=== PATIENT | female | born 1975 | race Caucasian/White ===

== ENCOUNTER 2018-04-09 15:33 | Emergency (ER) | payer OTHER, SELFPAY ==
[2018-04-09 15:33] VITALS: BP 120/71; PULSE 88; RESP 16; TEMP 36.6; O2SAT 98; BMI 23.0
[2018-04-09] MEDS: Tetracaine 0.5% Ophthalmic Bottle 1 DRP RIGHT EYE (16:11)
--- NOTE | 2018-04-09 16:23 | ED.DEP ---
ED Disposition - Plan for ED Patient: Chief Complaint: Eye Problem Instructions: ED Chemical Conjunctivitis Referrals: Sergio Clancy MD [Primary Care Provider] - Ludwin Mora MD [STAFF PHYSICIAN] - 1 Day for another exam
[2018-04-09] MEDS: Gentamicin Sulfate 1 OPTH.BTL 2 DRP RIGHT EYE (16:50)
[2018-04-09 16:54] VITALS: PULSE 86; RESP 16; O2SAT 98
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
== END 2018-04-09 16:55 | disposition home or self-care (01) ==
PROVIDERS: Emergency Provider Emergency Medicine; Family Provider Family Medicine; PCP Family Medicine
DX: H10.211 Acute toxic conjunctivitis, right eye (principal); Z77.098 Contact with and (suspected) exposure to other hazardous, chiefly nonmedicinal, chemicals
CPT/HCPCS: 99284; J7030

== ENCOUNTER 2019-08-28 18:40 | Emergency (ER) | payer OTHER, SELFPAY ==
[2019-08-28] VITALS (7 sets, daily range): BP systolic 93–104; BP diastolic 63–80; PULSE 72–106; RESP 12–75; TEMP 36.6–36.7; O2SAT 99–100; BMI 24.2
--- NOTE | 2019-08-28 18:55 | EKG12_ITS ---
Test Reason : CP Blood Pressure : / mmHG Vent. Rate : 094 BPM Atrial Rate : 094 BPM P-R Int : 154 ms QRS Dur : 076 ms QT Int : 394 ms P-R-T Axes : 080 085 075 degrees QTc Int : 492 ms Normal sinus rhythm Abnormal ECG Confirmed by MARLENA JOSEPH MD ([id number]), rewrite editor SARAI NATHAN ([id number]) on 09/01/2019 9:00:05 AM Referred By: ALPESH Confirmed By:MARLENA JOSEPH MD
[2019-08-28] MEDS: 0.9% Normal Saline 1,000 ML 1000 ML IV (19:03)
[2019-08-28] MEDS: Ondansetron 4 MG/2 ML Vial IV (19:03)
[2019-08-28 19:27] LABS: ALB/GLOB Ratio 1.3 RATIO (0.9-2.4); AST(SGOT) 14 U/L (15-37); Alanine Aminotransfer ALT/SGPT 28 U/L (13-56); Albumin, Serum 3.9 g/dL (3.2-5.0); Alkaline Phosphatase 52 U/L (45-117); Anion Gap 9 (5-15); BUN 12 mg/dL (7-18); BUN/Creat Ratio 13.6 RATIO (10-20); Calcium,Total 8.5 mg/dL (8.5-10.1); Chloride 106 mmol/L (98-107); Creatinine, Serum 0.88 mg/dL (0.55-1.02); EST Glomerular Filtration Rate 74 mL/min (>60); Est Glom Filt Rate - Afr Amer 90 mL/min (>60); Estimated Creatinine Clearance 68.19 ml/min; Glucose 156 mg/dL (74-106); Lipase 89 U/L (73-393); Potassium 3.1 mmol/L (3.5-5.1); Protein, Total 6.9 g/dL (6.4-8.2); Sodium Level 139 mmol/L (136-145)
[2019-08-28 19:34] LABS: Absolute Lymphocyte Count 0.94 X10^3/uL (0.83-4.51); Absolute Neutrophil Count 10.6 X10^3/uL (2.0-7.7); Basophil# 0.02 X10^3/uL; Basophil% 0.2 % (0-1); Eosinophil# 0.01 X10^3/uL; Eosinophils% 0.1 % (0-5); Hematocrit 38.2 % (37-47); Hemoglobin 12.7 g/dL (12.0-15.0); Lymphocyte # 0.94 X10^3/ul (4.0); Lymphocyte % 7.9 % (19-41); Mean Corp Hgb Conc 33.2 g/dL (32-36); Mean Corpuscular Hgb 29.7 pg (27.0-32.0); Mean Corpuscular Volume 89.5 fL (81-99); Mean Platelet Vol. 10.4 fl (6.2-12.0); Monocyte% 1.7 % (0-10); NRBC Flagged by Analyzer 0 % (0-5); Neutrophil % 89.5 % (47-70); Platelet Count 296 K/mm3 (150-450); RBC Distribution Width CV 12.1 % (11.6-14.6); RBC Distribution Width SD 39.5 fl (35.1-43.9); Red Blood Count 4.27 M/mm3 (4.2-5.4); White Blood Count 11.8 K/mm3 (4.4-11.0)
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
--- NOTE | 2019-08-28 20:21 | ED.DEP ---
ED Disposition - Plan for ED Patient: Disposition: Home or Assisted Living Instructions: ED Nausea Vomiting Adult Prescriptions: Ondansetron [Zofran Odt] 4 mg PO Q8H PRN PRN #10 tab PRN Reason: Nausea Prescription Printed Referrals: Yon Méndez MD [Primary Care Provider] - 3-5 Days if not improving Additional Instructions: Plenty of fluids and rest. Increase diet slowly and as tolerated. Zofran as needed for nausea. Follow-up with not improving or return if feeling worse. Your labs, cardiac enzymes and EKG were all normal today. Your potassium is only slightly low at 3.1 that should improve with a regular diet.
[2019-08-28] MEDS: Ondansetron ODT 4 MG Tablet PO ×2 (20:51)
== END 2019-08-28 20:51 | disposition home or self-care (01) ==
PROVIDERS: Emergency Provider Emergency Medicine; PCP Family Medicine
DX: R11.2 Nausea with vomiting, unspecified (principal)
CPT/HCPCS: 80053; 83690; 84484; 85025; 93005; 96361; 96374; 99285; J2405

== ENCOUNTER 2021-01-09 09:05 | Emergency (ER) | payer OTHER, SELFPAY ==
[2021-01-09 09:07] VITALS: BP 131/82; PULSE 90; RESP 17; TEMP 36.8; O2SAT 99; BMI 22.1
--- NOTE | 2021-01-09 09:12 | EKG12_ITS ---
Test Reason : CP Blood Pressure : / mmHG Vent. Rate : 090 BPM Atrial Rate : 090 BPM P-R Int : 142 ms QRS Dur : 080 ms QT Int : 372 ms P-R-T Axes : 075 082 080 degrees QTc Int : 455 ms Normal sinus rhythm Normal ECG Confirmed by DUKE FRAUSTO, MEHRDAD ([id number]), supervising film or videotape editor LORAINE MAURO ([id number]) on 01/11/2021 9:35:21 AM Referred By: CHERRY Confirmed By:MEHRDAD WALL MD
--- NOTE | 2021-01-09 09:14 | EDS_ITS ---
HPI History of Present Illness Chief Complaint: Chest Pain Onset/Context/Timing Onset: Hours Activity at onset: sudden and rest Timing: Continuous Quality: Positive for Sharp and Stabbing Location: Substernal (With radiation through the back.) Current Severity: Severe Maximum Severity: Severe Worsened By: Nothing Relieved By: Nothing Associated Symptoms: Positive for Nausea (Patient responded I am not sure.); Negative for Diaphoresis, Dyspnea, Cough, Fever, Lightheadedness, Acid Reflux and Palpitations Narrative Narrative: Patient is a healthy 45-year-old woman with no significant past medical history and no surgical history who presents with substernal sharp stabbing pain that radiates to the back with no associated symptoms. She denies intolerance to greasy or fried foods. She denies history of VTE. She denies black or maroon-colored stool. She denies upper respiratory symptoms. Pain started at approximately 0800. Patient states she took Prilosec tablet at 0830. Patient was reassessed at 0916. Patient states the pain is subsiding. Prior Similar Symptoms: Yes (Not as severe and attributed to possible reflux) Recent Illness/Hospitalization: No CVD Risk Factors: Negative for Hypertension, Diabetes, Hypercholesterolemia, Family History 1' </=55 and Smoking PE Risk Factors: Negative for Recent Travel/Surgery, Recent Immobilization, Prior DVT or PE and Cancer TAD Risk Factors: Negative for Marfan's Syndrome, Hypertension and Family History PFSH PFSH no medical history Allergy/AdvReac Type Severity Reaction Status Date / Time promethazine [From Phenergan] AdvReac Unknown Verified 01/09/21 09:10 no surgical history Social History (Updated 01/09/21 @ 09:[address] Rod Cat MD) household members: spouse current occupational exposures/hazards: No Smoking Status: Never smoker alcohol intake: never substance use type: does not use ROS ROS ED Constitutional Constitutional ED: Denies chills, fever(s) or sweats Eyes Eyes: Reports none ENT ENT ED: Denies rhinorrhea or sore throat Cardiovascular Cardiovascular: Reports as per HPI and chest pain; Denies orthopnea, palpitations or racing heartbeat Respiratory/Chest Respiratory/Chest: Denies cough, dyspnea, dyspnea on exertion or orthopnea Gastrointestinal Gastrointestinal: Denies abdominal pain, constipation, diarrhea or vomiting Genitourinary Genitourinary ED: Denies dysuria, hematuria or urinary frequency Musculoskeletal Musculoskeletal: Reports back pain; Denies arthralgias, myalgias or neck pain Integumentary Denies rash Neurologic Neurologic: Denies headache(s) or weakness Hematologic/Lymphatic Hematologic/Lymphatic: Denies easy bleeding or easy bruising EXAM Physical Exam Const Vital Signs: 01/09/21 09:07 01/09/21 09:11 01/09/21 10:17 Temperature 98.2 F Temperature Source Temporal Pulse Rate 90 82 Respiratory Rate 17 16 Respiratory Effort Normal Non-Labored Blood Pressure 131/82 H 99/82 H Blood Pressure Mean 98 87 Pulse Ox 99 99 Oxygen Delivery Method Room Air Room Air 01/09/21 11:44 01/09/21 12:15 Temperature Temperature Source Pulse Rate 89 80 Respiratory Rate 20 H 14 Respiratory Effort Blood Pressure 106/76 108/70 Blood Pressure Mean 86 82 Pulse Ox 97 98 Oxygen Delivery Method Positive well nourished and well developed General Appearance ED: well developed and other Patient appears uncomfortable. She is not able to sit still. HEENT Reports moist mucous membranes normocephalic and atraumatic Eyes PERRL and EOMs intact bilaterally General Eye ED: Negative for pale conjunctiva or scleral icterus Neck no lymphadenopathy, supple and no JVD Chest Wall palpation of chest normal Resp normal respiratory effort Effort and Inspection: respiratory distress Cardio regular rate, regular rhythm, S1 normal heart sound, S2 normal heart sound and no murmurs GI normal to inspection, nondistended, normoactive bowel sounds, soft to palpation, non-tender and non-distended; Negative for hepatosplenomegaly GI Narrative: Negative Young sign. Back/Spine no CVA tenderness Extremity normal to inspection General Extremety ED: Negative for edema, pulses abnormal or tenderness General Extremity: Negative for edema or pulses abnormal Neuro oriented x3 and CN's II-XII intact bilaterally Sensorium / Orientation: awake and alert Psych mental status grossly normal Skin no rashes or lesions noted and no wounds Heart Score History: Slightly/Non-Suspicious ECG: Normal Age: </= 45 years Risk Factors: No Risk Factors Score: 0 MDM MDM MDM Narrative Medical decision making narrative: Patient presents with significant atypical chest pain radiating through the back. Differential diagnosis would include cardiac versus noncardiac. Need to evaluate for esophageal spasm, GERD, biliary pain, and doubt aortic dissection. Lab Data Attestation: I reviewed the patient's lab results. Lab results narrative: Blood work is unremarkable. Delta troponin is normal. Suspect patient has esophageal spasm. Labs: Laboratory Results - last 24 hr 01/09/21 01/09/21 01/09/21 09:15 09:15 11:47 WBC 10.0 RBC 4.47 Hgb 13.2 Hct 40.3 MCV 90.2 MCH 29.5 MCHC 32.8 RDW Std Deviation 40.5 RDW Coeff of Hardy 12.2 Plt Count 346 MPV 10.1 Immature Gran % (Auto) 0.900 Neut % (Auto) 49.1 Lymph % (Auto) 40.0 [place] % (Auto) 7.1 Eos % (Auto) 2.1 Baso % (Auto) 0.8 Absolute Neuts (auto) 4.9 Absolute Lymphs (auto) 4.01 Nucleated RBC % 0 Sodium 140 Potassium 3.4 L Chloride 109 H Carbon Dioxide 25.0 Anion Gap 6 BUN 13 Creatinine 0.81 Estim Creat Clear Calc 82.11 Est GFR (MDRD) Af Amer 98 Est GFR (MDRD) Non-Af 81 BUN/Creatinine Ratio 16.0 Glucose 129 H Calcium 9.0 Total Bilirubin 0.30 AST 17 ALT 28 Alkaline Phosphatase 60 Troponin I High Sens 4 4 Total Protein 7.4 Albumin 4.0 Globulin 3.4 Albumin/Globulin Ratio 1.2 Lipase 116 Radiography Chest X-Ray - ED: 1 View, Read by ED Physician, Normal, Heart, Lungs and Mediastinum Diagnostic Testing: Radiology Impression Chest X-Ray 01/09/21 09:54 IMPRESSION: Normal x-ray examination of the chest. Electronically Signed: Armando Henderson MD at 10:11 EDT Tel , Service support , EKG Initial EKG: Attestation: I personally reviewed and interpreted this EKG as follows: Interpretation: Sinus Rhythm (EKG is normal. The ventricular rate is 90. GA interval is 142 ms. QS duration 80 ms. QT duration 372 ms. [place] is normal. This was obtained when patient was having pain.) Prior EKG tracings: available for review Prior: Unchanged (Prior EKG was dated) Discharge Plan Triage Chief Complaint: Chest Pain ED Provider: Cat,Rod Dx/Rx/DC Orders Clinical Impression: Chest pain at rest, Esophageal spasm Instructions: ED Chest Pain, Noncardiac, ED Esophageal Spasm Primary Care Provider: Yon Méndez Referrals: Yon Méndez MD [Primary Care Provider] - As Needed Disposition Disposition: Home, Self Care
[2021-01-09 09:23] LABS: Absolute Lymphocyte Count 4.01 X10^3/uL (0.83-4.51); Absolute Neutrophil Count 4.9 X10^3/uL (2.0-7.7); Basophil# 0.08 X10^3/uL; Basophil% 0.8 % (0-1); Eosinophil# 0.21 X10^3/uL; Eosinophils% 2.1 % (0-5); Hematocrit 40.3 % (37-47); Hemoglobin 13.2 g/dL (12.0-15.0); Lymphocyte # 4.01 X10^3/ul (0.83-4.51); Mean Corp Hgb Conc 32.8 g/dL (32-36); Mean Corpuscular Hgb 29.5 pg (27.0-32.0); Mean Corpuscular Volume 90.2 fL (81-99); Mean Platelet Vol. 10.1 fl (6.2-12.0); Monocyte# 0.71 X10^3/uL; Monocyte% 7.1 % (0-10); NRBC Flagged by Analyzer 0 % (0-5); Neutrophil # 4.92 X10^3/uL (2.7-7.7); Neutrophil % 49.1 % (47-70); Platelet Count 346 K/mm3 (150-450); RBC Distribution Width CV 12.2 % (11.6-14.6); RBC Distribution Width SD 40.5 fl (35.1-43.9); Red Blood Count 4.47 M/mm3 (4.2-5.4)
[2021-01-09 09:42] LABS: ALB/GLOB Ratio 1.2 RATIO (0.9-2.4); AST(SGOT) 17 U/L (15-37); Alanine Aminotransfer ALT/SGPT 28 U/L (13-56); Alkaline Phosphatase 60 U/L (45-117); Anion Gap 6 (5-15); BUN 13 mg/dL (7-18); Chloride 109 mmol/L (98-107); Creatinine, Serum 0.81 mg/dL (0.55-1.02); EST Glomerular Filtration Rate 81 mL/min (>60); Est Glom Filt Rate - Afr Amer 98 mL/min (>60); Estimated Creatinine Clearance 82.11 ml/min; Globulin 3.4 g/dL (2.2-4.2); Glucose 129 mg/dL (74-106); Lipase 116 U/L (73-393); Potassium 3.4 mmol/L (3.5-5.1); Protein, Total 7.4 g/dL (6.4-8.2); Sodium Level 140 mmol/L (136-145); Troponin-I HS 4 pg/mL (3.0-54.0)
--- NOTE | 2021-01-09 09:54 | RAD_ITS ---
STUDY: X-RAY CHEST REASON FOR EXAM: Female, 45 years old. CP TECHNIQUE: Single AP portable view of the chest. COMPARISON: None. FINDINGS: The lungs are clear and expanded. There is no demonstrated pleural abnormality. Normal size heart. Normal mediastinum and chun. Normal visualized pulmonary arteries. Normal visualized aortic arch and descending thoracic aorta. Normal visualized thoracic spine. Normal visualized ribs, clavicles, and shoulders. There is no demonstrated abnormality of the visualized soft tissue structures of the upper abdomen. RAD/Chest 1 View (Portable) IMPRESSION: Normal x-ray examination of the chest. Electronically Signed: Armando Henderson MD at 10:11 EDT Tel , Service support ,
[2021-01-09 10:17] VITALS: BP 99/82; PULSE 82; RESP 16; O2SAT 99
[2021-01-09 11:44] VITALS: BP 106/76; PULSE 89; RESP 20; O2SAT 97
[2021-01-09 12:15] VITALS: BP 108/70; PULSE 80; RESP 14; O2SAT 98
[2021-01-09 12:15] LABS: Troponin-I HS 4 pg/mL (3.0-54.0)
== END 2021-01-09 12:47 | disposition home or self-care (01) ==
PROVIDERS: Emergency Provider Emergency Medicine; PCP Family Medicine
DX: K22.4 Dyskinesia of esophagus (principal); R07.9 Chest pain, unspecified
CPT/HCPCS: 71045; 80053; 83690; 84484; 85025; 93005; 99283; A4216

== ENCOUNTER 2021-02-24 15:07 | Inpatient (IN) | payer OTHER, SELFPAY ==
[2021-02-24 15:09] VITALS: BP 101/81; PULSE 94; RESP 18; TEMP 36.3; O2SAT 96
[2021-02-24 15:12] VITALS: BP 101/81; PULSE 97; RESP 18; TEMP 36.3; O2SAT 96; BMI 22.1
[2021-02-24 15:40] LABS: Absolute Lymphocyte Count 4.42 X10^3/uL (0.83-4.51); Basophil# 0.06 X10^3/uL; Basophil% 0.4 % (0-1); Eosinophil# 0.14 X10^3/uL; Hematocrit 41.3 % (37-47); Hemoglobin 14.1 g/dL (12.0-15.0); Lymphocyte # 4.42 X10^3/ul (0.83-4.51); Lymphocyte % 32.5 % (19-41); Mean Corp Hgb Conc 34.1 g/dL (32-36); Mean Corpuscular Hgb 29.4 pg (27.0-32.0); Mean Corpuscular Volume 86.2 fL (81-99); Mean Platelet Vol. 10.3 fl (6.2-12.0); Monocyte% 6.6 % (0-10); NRBC Flagged by Analyzer 0 % (0-5); Neutrophil # 7.99 X10^3/uL (2.7-7.7); Platelet Count 476 K/mm3 (150-450); RBC Distribution Width SD 38.2 fl (35.1-43.9); Red Blood Count 4.79 M/mm3 (4.2-5.4); White Blood Count 13.6 K/mm3 (4.4-11.0)
[2021-02-24 15:59] LABS: Anion Gap 10 (5-15); BUN 7 mg/dL (7-18); BUN/Creat Ratio 7.1 RATIO (10-20); Calcium,Total 9.6 mg/dL (8.5-10.1); Chloride 104 mmol/L (98-107); Creatinine, Serum 0.99 mg/dL (0.55-1.02); EST Glomerular Filtration Rate 64 mL/min (>60); Est Glom Filt Rate - Afr Amer 78 mL/min (>60); Estimated Creatinine Clearance 59.36 ml/min; Glucose 137 mg/dL (74-106); Potassium 2.8 mmol/L (3.5-5.1); Sodium Level 139 mmol/L (136-145)
--- NOTE | 2021-02-24 16:02 | EKG12_ITS ---
Test Reason : ABDOMINAL PAIN Blood Pressure : / mmHG Vent. Rate : 091 BPM Atrial Rate : 091 BPM P-R Int : 154 ms QRS Dur : 078 ms QT Int : 386 ms P-R-T Axes : 080 079 072 degrees QTc Int : 474 ms Normal sinus rhythm Normal ECG Confirmed by OPAL FRAUSTO, MARLENA ([id number]), editor dictionary LORAINE MAURO ([id number]) on 02/28/2021 8:38:53 AM Referred By: RU Confirmed By:MARLENA JOSEPH MD
--- NOTE | 2021-02-24 16:03 | EX.ED.DYSGE1 ---
HPI History of Present Illness Chief Complaint: Chest Pain Detail of Chief Complaint: Chest/epigastric pain that started this morning around 11:30 AM Informant: patient Narrative Narrative: Patient presents to the emergency department complaint of epigastric pain that started on 11:30 AM. Patient states that it felt like heartburn and she took some Pepto. Pain lasted about 45 minutes and seemed to resolve. About 1:30 PM she started having more discomfort in the epigastric region that radiated through to her back. Patient states that she had numbness and tingling into both hands and her finger started to curl in. Patient states that she had similar episode like this several weeks ago and was seen in the emergency department no etiology was found. Patient states that she had a stomach flu bug with diarrhea about a week ago. She otherwise has no medical history. No family history of heart disease. She denies recent travel or surgery. Currently her pain is mostly resolved but she states that seems to come and go and is sharp and stabbing. Prior similar symptoms: Yes PFSH PFSH Medical History no medical history Home Medications omeprazole 20 mg PO DAILY 02/24/21 [History Last Taken Unknown] Allergy/AdvReac Type Severity Reaction Status Date / Time promethazine [From Phenergan] AdvReac Unknown Verified 01/09/21 09:10 Family History (Updated 02/24/21 @ 16:02 by Sophie Gunn) Father Hypertension Social History (Updated 01/09/21 @ 09:[address] Rod Cat MD) household members: spouse current occupational exposures/hazards: No Smoking Status: Never smoker alcohol intake: never substance use type: does not use ROS ROS ED Constitutional Constitutional ED: Reports systems reviewed and no addt'l complaints, except as documented; Denies body ache(s), change in weight or chills Eyes Eyes: Denies acute decrease in peripheral vision, change in vision, double vision or loss of vision ENT ENT ED: Reports none; Denies ear pain, lip swelling, loss taste/smell, neck pain, otalgia or sore throat Cardiovascular Cardiovascular: Reports none and chest pain; Denies abdominal pain, chest pain with activity, leg edema, lightheadedness, palpitations, rapid heart rate or syncope Respiratory/Chest Respiratory/Chest: Reports none; Denies change in mental status, dry cough, dyspnea, hemoptysis, shortness of breath at rest or shortness of breath with exertion Gastrointestinal Gastrointestinal: Reports none and abdominal pain; Denies change in stool character, diarrhea, hematemesis, hematochezia, melena, rectal bleeding or vomiting Genitourinary Genitourinary ED: Reports none; Denies abdominal discomfort, anuria, dysuria, genital pain or polyuria Musculoskeletal Musculoskeletal: Reports none; Denies arthralgias, back pain, difficulty walking, extremity pain, muscle weakness or myalgias Integumentary Reports none; Denies abscess or rash Neurologic Neurologic: Reports none and paresthesias; Denies abnormal gait, confusion, focal weakness, frequent falls, headache(s), loss of vision, numbness, radicular pain, vertigo or weakness Psychiatric Psychiatric: Reports systems reviewed and no addt'l complaints, except as documented and none; Denies behavioral changes, confusion, difficulty concentrating, hallucinations, suicidal ideation, tactile hallucinations or visual hallucinations Endocrine Endocrinology: Denies none, cold intolerance, excessive sweating, fatigue or heat intolerance Hematologic/Lymphatic Hematologic/Lymphatic: Reports none; Denies anemia, easy bleeding or easy bruising Allergic/Immunologic Allergic/Immunologic ED: Denies as per HPI, none, lip swelling, mouth swelling, throat swelling, tongue swelling or hives EXAM Physical Exam Const Vital Signs: 02/24/21 15:09 02/24/21 15:12 02/24/21 15:55 Temperature 97.3 F L 97.3 F L Temperature Source Temporal Temporal Pulse Rate 94 97 Respiratory Rate 18 18 Respiratory Effort Normal Respiratory Pattern Normal Blood Pressure 101/81 H 101/81 H Blood Pressure Mean 87 87 Pulse Ox 96 96 Oxygen Delivery Method Room Air Room Air 02/24/21 17:39 02/24/21 18:24 Temperature Temperature Source Pulse Rate 94 101 H Respiratory Rate 16 18 Respiratory Effort Respiratory Pattern Blood Pressure 129/75 H 112/75 Blood Pressure Mean 93 87 Pulse Ox 97 97 Oxygen Delivery Method Room Air Positive well nourished and well developed General Appearance ED: well developed and NAD HEENT Reports TM's clear and moist mucous membranes normocephalic and atraumatic; Negative for trauma or tenderness Tympanic Membrane ED: Yes TM's clear Eyes PERRL and EOMs intact bilaterally General Eye ED: Negative for pale conjunctiva or scleral icterus Neck no lymphadenopathy, supple and no JVD General: Negative for tenderness Chest Wall inspection of chest normal and palpation of chest normal Chest: Negative for tenderness Resp normal respiratory effort and clear to auscultation bilaterally Effort and Inspection: Negative for respiratory distress or pain with movement Auscultation: Negative for rhonchi, wheezes or diminished lung sounds Cardio regular rate, regular rhythm, S1 normal heart sound, S2 normal heart sound and no murmurs Peripheral Pulses: pulses 2+ throughout GI normal to inspection, nondistended, normoactive bowel sounds, soft to palpation, non-distended and no masses GI Narrative: Patient has some tenderness palpation over the epigastric region with some mild guarding. There is no rebound, rigidity, or peritoneal signs. Negative Young sign. Palpation: soft Back/Spine no CVA tenderness and no thoracic nor lumbar tenderness Extremity normal to inspection General Extremety ED: Negative for edema General Extremity: Negative for edema Neuro oriented x3, CN's II-XII intact bilaterally, no sensory deficits noted and gait normal Sensorium / Orientation: awake, alert, oriented to person, oriented to place and oriented to time Motor Exam: strength 5/5 throughout and strength abnormal Psych mental status grossly normal Skin no rashes or lesions noted and no wounds MDM MDM MDM Narrative Medical decision making narrative: IV line established on arrival. Patient was given Zofran IV. She did not want anything for pain. Patient received 40 mEq of potassium chloride IV. On CT she is noted to have cholelithiasis as well as cholecystitis and choledocholithiasis. Case discussed with general surgeon on-call who will admit patient. I did start patient on Zosyn 4.5 g IV. Lab Data Attestation: I reviewed the patient's lab results. Labs: Laboratory Results - last 24 hr 02/24/21 02/24/21 02/24/21 14:24 14:24 14:24 WBC 13.6 H RBC 4.79 Hgb 14.1 Hct 41.3 MCV 86.2 MCH 29.4 MCHC 34.1 RDW Std Deviation 38.2 RDW Coeff of [place] 12.0 Plt Count 476 H MPV 10.3 Immature Gran % (Auto) 0.500 Neut % (Auto) 59.0 Lymph % (Auto) 32.5 [place] % (Auto) 6.6 Eos % (Auto) 1.0 Baso % (Auto) 0.4 Absolute Neuts (auto) 8.0 H Absolute Lymphs (auto) 4.42 Nucleated RBC % 0 D-Dimer Quant (PE/DVT) Sodium 139 Potassium 2.8 L Chloride 104 Carbon Dioxide 25.0 Anion Gap 10 BUN 7 Creatinine 0.99 Estim Creat Clear Calc 59.36 Est GFR (MDRD) Af Amer 78 Est GFR (MDRD) Non-Af 64 BUN/Creatinine Ratio 7.1 L Glucose 137 H Calcium 9.6 Total Bilirubin 0.70 Direct Bilirubin 0.19 AST 18 ALT 19 Alkaline Phosphatase 63 Troponin I High Sens 6 Total Protein 8.0 Albumin 4.5 Globulin 3.5 Lipase 90 Urine Color Urine Clarity Urine pH Ur Specific [place] Urine Protein Urine Glucose (UA) Urine Ketones Urine Occult Blood Urine Nitrite Urine Bilirubin Urine Urobilinogen Ur Leukocyte Esterase Urine RBC Urine WBC Ur Squamous Epith Cells Urine Bacteria Urine Mucus 02/24/21 02/24/21 16:22 17:20 WBC RBC Hgb Hct MCV MCH MCHC RDW Std Deviation RDW Coeff of Hardy Plt Count MPV Immature Gran % (Auto) Neut % (Auto) Lymph % (Auto) [place] % (Auto) Eos % (Auto) Baso % (Auto) Absolute Neuts (auto) Absolute Lymphs (auto) Nucleated RBC % D-Dimer Quant (PE/DVT) <= 0.27 Sodium Potassium Chloride Carbon Dioxide Anion Gap BUN Creatinine Estim Creat Clear Calc Est GFR (MDRD) Af Amer Est GFR (MDRD) Non-Af BUN/Creatinine Ratio Glucose Calcium Total Bilirubin Direct Bilirubin AST ALT Alkaline Phosphatase Troponin I High Sens Total Protein Albumin Globulin Lipase Urine Color Yellow Urine Clarity Clear Urine pH 6.5 Ur Specific [place] 1.015 Urine Protein Negative Urine Glucose (UA) Normal Urine Ketones 50 H Urine Occult Blood Negative Urine Nitrite Negative Urine Bilirubin Negative Urine Urobilinogen Normal Ur Leukocyte Esterase Negative Urine RBC 0 SEEN Urine WBC 0 SEEN Ur Squamous Epith Cells 0 SEEN Urine Bacteria 0 SEEN Urine Mucus 0 SEEN Radiography Diagnostic Testing: Clinical Impression(s) from Imaging Studies Abdomen/Pelvis CT 02/24/21 16:59 IMPRESSION: Findings suspicious for acute cholecystitis and choledocholithiasis. Electronically Signed: Roman Umanzor MD at 18:51 EDT Tel , Service support , Discharge Plan Triage Chief Complaint: Chest Pain ED Provider: Awilda Valente Dx/Rx/DC Orders Clinical Impression: Choledocholithiasis, Acute cholecystitis, Abdominal pain, Acute hypokalemia Prescriptions: No Action omeprazole 20 mg Tablet,Delayed Release (Dr/Ec) 20 mg PO DAILY RF: 0 Primary Care Provider: Yon Méndez Referrals: Yon Méndez MD [Primary Care Provider] - Disposition Disposition: Acute Care Hospital [facility]
[2021-02-24] MEDS: 0.9% Normal Saline 1,000 ML 125 ML IV ×2 (16:10→21:19)
[2021-02-24] MEDS: Mag Hydrox/Al Hydrox/Simeth 30 ML UDC PO (16:10)
[2021-02-24 16:29] LABS: AST(SGOT) 18 U/L (15-37); Alanine Aminotransfer ALT/SGPT 19 U/L (13-56); Albumin, Serum 4.5 g/dL (3.2-5.0); Alkaline Phosphatase 63 U/L (45-117); Bilirubin, Direct 0.19 mg/dL (0.00-0.30); Globulin 3.5 g/dL (2.2-4.2); Lipase 90 U/L (73-393); Troponin-I HS 6 pg/mL (3.0-54.0)
[2021-02-24 16:41] LABS: D-Dimer Quantitative (DVT/PE) <= 0.27 FEU/ug/m (0.27-0.49)
--- NOTE | 2021-02-24 16:59 | CT_ITS ---
INDICATION: abdominal pain EXAMINATION: CT Abdomen And Pelvis W/ Contrast Injection TECHNIQUE: Helically acquired images were obtained of the abdomen and pelvis after IV contrast. A radiation dose optimization technique was used for this scan. IV Contrast dosage and agent: IV 100mL [id number]-370 Oral contrast: None. COMPARISON: None. FINDINGS: Visualized lung bases: Unremarkable Liver: Scattered hepatic cysts. Gallbladder: Few intraluminal stones. There is gallbladder wall thickening. There is pericholecystic fat stranding. There is a 5 mm stone in the cystic duct. There is a 4 mm stone in the distal common bile duct with associated dilatation with a diameter of 1 cm. Spleen: Unremarkable Pancreas: Unremarkable Adrenal Glands: Unremarkable Kidneys: Unremarkable Vasculature: Unremarkable GI Tract: Unremarkable Lymphadenopathy: None Peritoneum: No ascites. Bladder: Unremarkable Reproductive organs: Unremarkable Bones/Soft tissues: No suspicious osseous or soft tissue lesions CT/Abdomen/Pelvis W IV Cont ONLY IMPRESSION: Findings suspicious for acute cholecystitis and choledocholithiasis. Electronically Signed: Roman Umanzor MD at 18:51 EDT Tel , Service support ,
[2021-02-24] MEDS: Ondansetron 4 MG/2 ML Vial IV ×2 (17:32→21:34)
[2021-02-24 17:38] LABS: Bacteria 0 SEEN /hpf (None Seen); Mucous, Urine 0 SEEN /hpf (<or=2+); Red Blood Cells-Urine 0 SEEN /hpf (0-5); Squamous Epithelial Cells - UA 0 SEEN /hpf (5-10); White Blood Cells 0 SEEN /hpf (0-5)
[2021-02-24 17:39] VITALS: BP 129/75; PULSE 94; RESP 16; O2SAT 97
[2021-02-24 17:40] LABS: Color, Urine Yellow (Yellow); Glucose, Dipstick Normal (Normal); Ketone-Dipstick 50 mg/dl (Negative); Leukocyte Esterase-Dipstick Negative /ul (Negative); Nitrite-Dipstick Negative (Negative); Occult Blood-Urine Negative /ul (Negative); Protein-Dipstick Negative (Negative); Specific Gravity, Urine 1.015 (1.002-1.030); Urine Bilirubin Dipstick Negative (Negative); Urine Clarity Clear (Clear); Urine Urobilinogen Normal (Normal); Urine pH 6.5 (5.0 - 8.0)
[2021-02-24] MEDS: Potassium Chloride 10mEq/100mL 10 MEQ/100 ML IV.SOLN. 100 MEQ IV BOLUS ×4 (18:20→21:37)
[2021-02-24 18:24] VITALS: BP 112/75; PULSE 101; RESP 18; O2SAT 97
--- NOTE | 2021-02-24 20:05 | HP.PCM.SX_ITS ---
HPI - General General Date of Admission: 02/24/21 HPI Narrative ZACARIAS GONZALEZ, is a 45 F who presents with abdominal pain. Patient reports the pain has been off and on for few weeks. She is in the emergency room about a week ago with the same symptoms. Patient reports this episode of pain started around 11 AM this morning. No nausea or vomiting. Patient reports pain in the right upper quadrant which radiates to the back. PFSH Medical History no medical history Home Medications omeprazole 20 mg PO DAILY 02/24/21 [History Last Taken Unknown] Allergy/AdvReac Type Severity Reaction Status Date / Time promethazine [From Phenergan] AdvReac Unknown Verified 01/09/21 09:10 Family History (Updated 02/24/21 @ 16:02 by Sophie Gunn) Father Hypertension Social History (Updated 01/09/21 @ 09:[address] Rod Cat MD) household members: spouse current occupational exposures/hazards: No Smoking Status: Never smoker alcohol intake: never substance use type: does not use ROS Constitutional Constitutional: Denies anorexia, chills or fatigue ENT HEENT: Denies abnormal hearing Cardiovascular Cardiovascular: Denies chest pain Respiratory/Chest Respiratory/Chest: Denies cough Gastrointestinal Gastrointestinal: Reports abdominal pain and diarrhea; Denies constipation, dysphagia, melena or nausea Vital Signs Vital Signs Vital Signs: 02/24/21 15:09 02/24/21 15:12 02/24/21 15:55 Temperature 97.3 F L 97.3 F L Temperature Source Temporal Temporal Pulse Rate 94 97 Respiratory Rate 18 18 Respiratory Effort Normal Respiratory Pattern Normal Blood Pressure 101/81 H 101/81 H Blood Pressure Mean 87 87 Pulse Ox 96 96 Oxygen Delivery Method Room Air Room Air 02/24/21 17:39 02/24/21 18:24 Temperature Temperature Source Pulse Rate 94 101 H Respiratory Rate 16 18 Respiratory Effort Respiratory Pattern Blood Pressure 129/75 H 112/75 Blood Pressure Mean 93 87 Pulse Ox 97 97 Oxygen Delivery Method Room Air Weight Weight: 125 lb 3.914 oz Body Mass Index (BMI) 22.1 Physical Exam Const oriented x3 and no apparent distress Resp normal respiratory effort Cardio regular rate and regular rhythm GI soft to palpation Palpation: tender RUQ Results Lab / Micro Data Result Diagrams: 02/24/21 14:24 02/24/21 14:24 Labs: Laboratory Results - last 24 hr 02/24/21 14:24: WBC 13.6 H, RBC 4.79, Hgb 14.1, Hct 41.3, MCV 86.2, MCH 29.4, MCHC 34.1, RDW Std Deviation 38.2, RDW Coeff of Hardy 12.0, Plt Count 476 H, MPV 10.3, Immature Gran % (Auto) 0.500, Neut % (Auto) 59.0, Lymph % (Auto) 32.5, [place] % (Auto) 6.6, Eos % (Auto) 1.0, Baso % (Auto) 0.4, Absolute Neuts (auto) 8.0 H, Absolute Lymphs (auto) 4.42, Nucleated RBC % 0 02/24/21 14:24: Sodium 139, Potassium 2.8 L, Chloride 104, Carbon Dioxide 25.0, Anion Gap 10, BUN 7, Creatinine 0.99, Estim Creat Clear Calc 59.36, Est GFR (MDRD) Af Amer 78, Est GFR (MDRD) Non-Af 64, BUN/Creatinine Ratio 7.1 L, Glucose 137 H, Calcium 9.6 02/24/21 14:24: Total Bilirubin 0.70, Direct Bilirubin 0.19, AST 18, ALT 19, Alkaline Phosphatase 63, Troponin I High Sens 6, Total Protein 8.0, Albumin 4.5, Globulin 3.5, Lipase 90 02/24/21 16:22: D-Dimer Quant (PE/DVT) <= 0.27 02/24/21 17:20: Urine Color Yellow, Urine Clarity Clear, Urine pH 6.5, Ur Specific [place] 1.015, Urine Protein Negative, Urine Glucose (UA) Normal, Urine Ketones 50 H, Urine Occult Blood Negative, Urine Nitrite Negative, Urine Bilirubin Negative, Urine Urobilinogen Normal, Ur Leukocyte Esterase Negative, Urine RBC 0 SEEN, Urine WBC 0 SEEN, Ur Squamous Epith Cells 0 SEEN, Urine Anna teria 0 SEEN, Urine Mucus 0 SEEN Radiology Impression Abdomen/Pelvis CT 02/24/21 16:59 IMPRESSION: Findings suspicious for acute cholecystitis and choledocholithiasis. Electronically Signed: Roman Umanzor MD at 18:51 EDT Tel , Service support , Assessment & Plan Assessment/Plan (1) Choledocholithiasis: (2) Acute cholecystitis: PLAN: Patient had a CT scan which shows choledocholithiasis as well as acute cholecystitis and cholelithiasis. Patient does have a white count and acute pain. I will admit the patient and start her on antibiotics and keep her n.p.o. and IV fluids. Patient is hypokalemic and this is being replaced. I recommend ERCP tomorrow for stone removal with subsequent laparoscopic cholecystectomy. I discussed ERCP and detail with the patient. I discussed the risks including but not limited to bleeding, infection, perforation of the bile duct or bowel, pancreatitis. Patient understands the risks and is when to proceed with ERCP tomorrow. I will order Covid test. Ronen Schuler MD Pager: [facility] [address] [place] [address], [address] [place] [address] Office:
[2021-02-24 20:07] VITALS: BP 119/79; PULSE 89; RESP 18; TEMP 36.8; O2SAT 98
[2021-02-24 20:32] VITALS: BMI 23.6
[2021-02-24 20:52] VITALS: BP 109/71; PULSE 82; RESP 18; TEMP 37.1; O2SAT 99
--- NOTE | 2021-02-24 21:24 | PCS.PANDOC ---
PANDEMIC DOCUMENTATION INITIATED: Date: 12/26/2020 Time: 190
[2021-02-24] MEDS: Morphine 2 MG/ML Syringe IV ×2 (21:34→22:24)
--- NOTE | 2021-02-24 22:07 | NURSING ---
At 2149 pt called out & stated her pain was a 10 and that morphine didn't seem to be working. Catalino RN aware. At 2207 pt called out and said that she was ok and that the pain seemed to have subsided for now.
--- NOTE | 2021-02-24 22:31 | NURSING ---
pt called out and stated that my pain is back up to a 10. pt stated that earlier when i gave the first dose of 2mg of morphine, pts pain was an 8, and this RN marked a 6. pt states that she is unsure if she told this RN whether her pain was a 6 or 8, but it hurts worse now and is a 10. additional 2mg of morphine given at this time to supplement dose of 4mg on JUL.
[2021-02-24] MEDS: 0.9% Saline Lock 10 ML Syringe IV (23:00)
[2021-02-24] MEDS: LORazepam 2 MG/ML Syringe 1 MG IV (23:00)
[2021-02-25] VITALS (11 sets, daily range): BP systolic 94–118; BP diastolic 56–80; PULSE 64–88; RESP 12–18; TEMP 36.3–37.1; O2SAT 96–100; BMI 23.6
[2021-02-25] MEDS: 0.9% Normal Saline 1,000 ML 125 ML IV ×3 (03:44→20:51)
[2021-02-25 05:58] LABS: Internal QC Validated? YES +Cl - CLEAR BKGD; Pregnancy, Urine Negative Negative
[2021-02-25 07:51] LABS: Absolute Lymphocyte Count 1.08 X10^3/uL (0.83-4.51); Absolute Neutrophil Count 4.4 X10^3/uL (2.0-7.7); Basophil# 0.04 X10^3/uL; Basophil% 0.7 % (0-1); Eosinophil# 0.09 X10^3/uL; Eosinophils% 1.5 % (0-5); Lymphocyte # 1.08 X10^3/ul (0.83-4.51); Lymphocyte % 17.7 % (19-41); Mean Corp Hgb Conc 33.3 g/dL (32-36); Mean Corpuscular Hgb 30.4 pg (27.0-32.0); Mean Corpuscular Volume 91.2 fL (81-99); Mean Platelet Vol. 10.3 fl (6.2-12.0); Monocyte# 0.47 X10^3/uL; Monocyte% 7.7 % (0-10); NRBC Flagged by Analyzer 0 % (0-5); Neutrophil % 71.9 % (47-70); Platelet Count 276 K/mm3 (150-450); RBC Distribution Width CV 12.4 % (11.6-14.6); Red Blood Count 3.62 M/mm3 (4.2-5.4); White Blood Count 6.1 K/mm3 (4.4-11.0)
--- NOTE | 2021-02-25 08:30 | RAD_ITS ---
HISTORY: Pain EXAMINATION/TECHNIQUE: FL Cholangiogram and/or Pancreatography OR: 6 spot intraoperative films were provided for interpretation. Total Fluoroscopic Time: 3 minutes 48 seconds AND # of Fluoroscopic Images: 6 COMPARISON: February 24, 2021 CT abdomen and pelvis FINDINGS: Sequential images show wire cannulization of the common bile duct. Nonspecific contrast region of the shalini hepatis on the initial image without increase on subsequent images. Small round filling defect on the common duct on image 2 which could represents air or stone, not seen on image 5. No other filling defects are identified in the common bile duct. Mild diffuse intra-and expect biliary dilatation.. Overlying contrast is also seen within bowel. RAD/ERCP Biliary Only IMPRESSION: Fluoroscopic support for ERCP. Mild diffuse intra-and expect biliary dilatation. Nonspecific contrast density projects over the shalini hepatis on initial image. Air or stone filling defect in the distal common bile duct on initial images, not seen on final images. Correlate with ERCP procedure note for real-time findings. at 0124 Reported and signed by: Pito Mark MD Electronically Signed: Pito Mark MD at 1:23 EDT Tel , Service support ,
[2021-02-25 08:38] LABS: ALB/GLOB Ratio 1.1 RATIO (0.9-2.4); AST(SGOT) 87 U/L (15-37); Alanine Aminotransfer ALT/SGPT 144 U/L (13-56); Albumin, Serum 2.9 g/dL (3.2-5.0); Alkaline Phosphatase 56 U/L (45-117); Anion Gap 6 (5-15); BUN 6 mg/dL (7-18); BUN/Creat Ratio 7.4 RATIO (10-20); Calcium,Total 7.8 mg/dL (8.5-10.1); Chloride 113 mmol/L (98-107); Creatinine, Serum 0.81 mg/dL (0.55-1.02); EST Glomerular Filtration Rate 81 mL/min (>60); Est Glom Filt Rate - Afr Amer 98 mL/min (>60); Estimated Creatinine Clearance 72.55 ml/min; Globulin 2.6 g/dL (2.2-4.2); Glucose 80 mg/dL (74-106); Lipase 57 U/L (73-393); Potassium 3.6 mmol/L (3.5-5.1); Protein, Total 5.5 g/dL (6.4-8.2); Sodium Level 143 mmol/L (136-145)
--- NOTE | 2021-02-25 10:59 | OP.ERCP_ITS ---
Patient Name: Amy Mendenhall Procedure Date: 02/25/2021 9:54 AM Date of : 1975 Age: 45 Procedure: ERCP Indications: Bile duct stone(s) Providers: Ronen Schuler MD Medicines: General Anesthesia Patient Profile: This is a 45 year old female. Refer to note in patient chart for documentation of history and physical. Complications: No immediate complications. Procedure: Pre-Anesthesia Assessment: - Prior to the procedure, a History and Physical was performed, and patient medications and allergies were reviewed. The patient's tolerance of previous anesthesia was also reviewed. The risks and benefits of the procedure and the sedation options and risks were discussed with the patient. All questions were answered, and informed consent was obtained. Prior Anticoagulants: The patient has taken no previous anticoagulant or antiplatelet agents. After reviewing the risks and benefits, the patient was deemed in satisfactory condition to undergo the procedure. After obtaining informed consent, the scope was passed under direct vision. Throughout the procedure, the patient's blood pressure, pulse, and oxygen saturations were monitored continuously. The duodenoscope was introduced through the mouth, and advanced to the duodenum and used to inject contrast into the bile duct. The ERCP was accomplished without difficulty. The patient tolerated the procedure well. Scope In: 10:28:10 AM Scope Out: 10:44:42 AM Total Procedure Duration Time 0 hours 16 minutes 32 seconds Findings: A 0.035 inch x 260 cm straight Dreamwire was passed into the biliary tree. The sphincterotome was passed over the guidewire and the bile duct was then deeply cannulated. Contrast was injected. The lower third of the main bile duct contained one stone mm. Biliary sphincterotomy was made with a monofilament sphincterotome using ERBE electrocautery. There was no post-sphincterotomy bleeding. The biliary tree was swept with a 12 mm balloon starting at the bifurcation. All stones were removed. Impression: - Choledocholithiasis was found. Complete removal was accomplished by biliary sphincterotomy and balloon extraction. - A biliary sphincterotomy was performed. - The biliary tree was swept. Recommendation: - Return patient to [facility] for ongoing care. Procedure Code(s): --- Professional --- 53404, Endoscopic retrograde cholangiopancreatography (ERCP); with removal of calculi/debris from biliary/pancreatic duct(s) 01094, Endoscopic retrograde cholangiopancreatography (ERCP); with sphincterotomy/papillotomy Diagnosis Code(s): --- Professional --- K80.50, Calculus of bile duct without cholangitis or cholecystitis without obstruction CPT copyright 2017 [employer]. All rights reserved. The codes documented in this report are preliminary and upon invoice coder review may be revised to meet current compliance requirements. Ronen Schuler MD 02/25/2021 10:58:49 AM This report has been signed electronically. Number of Addenda: 0 Note Initiated On: 02/25/2021 9:54 AM
--- NOTE | 2021-02-25 11:00 | OP.CCLET_ITS ---
02/25/2021 Yon Méndez [address] [place] [address] Re : ERCP procedure for Amyjeff Allisons Dear Dr. Méndez This procedure was performed on Thursday, February 25, 2021. My impressions and recommendations are as follows: Impressions : - Choledocholithiasis was found. Complete removal was accomplished by biliary sphincterotomy and balloon extraction. - A biliary sphincterotomy was performed. - The biliary tree was swept. Recommendations : - Return patient to [facility] for ongoing care. My findings are described in the full procedure note, which is enclosed. If I can be of further assistance, please feel free to contact me at Doctor phone number(s): , Work: . Sincerely, Ronen Schuler MD 02/25/2021 10:58:49 AM This report has been signed electronically.
--- NOTE | 2021-02-25 13:38 | CASEMGMT ---
Addendum entered by Jillian Stahl 02/25/21 17:15: RN CM back into pt room. Pt lying with eyes closed stating she doesn't feel well. She states she does not feel she will need dc planning, assessment deferred and patient is agreeable. Original Note: RN CM in to pt room for assessment at 1117 and pt off floor. RN CM back into pt room at 1338 and pt lying in bed with eyes closed, she asked to get her her nurse. Notified Tonja nurse. Will attempt assessment again later.
[2021-02-25] MEDS: Sucralfate 1 GM Tablet PO ×2 (15:31→21:26)
[2021-02-25] MEDS: 0.9% Saline Lock 10 ML Syringe IV (17:29)
[2021-02-25] MEDS: Ondansetron 4 MG/2 ML Vial IV (17:29)
[2021-02-25] MEDS: Morphine 2 MG/ML Syringe IV (17:29)
[2021-02-25] MEDS: BENZOCAINE/MENTHOL 1 LOZENGE MUCOUS MEM (20:11)
[2021-02-26] VITALS (12 sets, daily range): BP systolic 97–113; BP diastolic 62–80; PULSE 71–95; RESP 12–18; TEMP 35.6–36.9; O2SAT 97–100; BMI 23.6
[2021-02-26] MEDS: BENZOCAINE/MENTHOL 1 LOZENGE MUCOUS MEM (03:47)
--- NOTE | 2021-02-26 07:25 | PCM.PN.SRG ---
Subjective Subjective Patient is having no abdominal pain this morning Objective Data Objective Data Vital Signs: Vital Signs Temp Pulse Resp BP Pulse Ox 98.4 F 75 16 105/71 97 02/26/21 06:54 02/26/21 06:54 02/26/21 06:54 02/26/21 06:54 02/26/21 06:54 Oxygen Delivery Method Room Air Weight: 133 lb 2.547 oz Body Mass Index (BMI) 23.6 Intake & Output: Intake and Output for Last 24 Hours 02/24/21 02/25/21 02/26/21 23:59 23:59 23:59 Intake Total 1503.75 / 1503.75 3062.08 / 3662.08 1697.08 / 1697.08 Output Total 1650 / 1650 Balance 1503.75 / 1503.75 3062.08 / 3062.08 47.08 / 47.08 Lab / Micro Data Result Diagrams: 02/25/21 06:56 02/25/21 06:56 Labs: Laboratory Results - last 24 hr 02/25/21 06:56: WBC 6.1, RBC 3.62 L, Hgb 11.0 L, Hct 33.0 L, MCV 91.2 D, MCH 30.4, MCHC 33.3, RDW Std Deviation 41.0, RDW Coeff of Hardy 12.4, Plt Count 276, MPV 10.3, Immature Gran % (Auto) 0.500, Neut % (Auto) 71.9 H, Lymph % (Auto) 17.7 L, [place] % (Auto) 7.7, Eos % (Auto) 1.5, Baso % (Auto) 0.7, Absolute Neuts (auto) 4.4, Absolute Lymphs (auto) 1.08, Nucleated RBC % 0 02/25/21 06:56: Sodium 143, Potassium 3.6, Chloride 113 H, Carbon Dioxide 24.0, Anion Gap 6, BUN 6 L, Creatinine 0.81, Estim Creat Clear Calc 72.55, Est GFR (MDRD) Af Amer 98, Est GFR (MDRD) Non-Af 81, BUN/Creatinine Ratio 7.4 L, Glucose 80, Calcium 7.8 L, Total Bilirubin 0.60, AST 87 H, ALT 144 H, Alkaline Phosphatase 56, Total Protein 5.5 L, Albumin 2.9 L, Globulin 2.6, Albumin/Globulin Ratio 1.1, Lipase 57 L Micro: Microbiology 02/24/21 20:08 Nasal Secretion SARS-CoV-2 Antigen (Rapid) - Final Radiography Diagnostic Testing: Radiology Impression ERCP X-Ray 02/25/21 08:30 IMPRESSION: Fluoroscopic support for ERCP. Mild diffuse intra-and expect biliary dilatation. Nonspecific contrast density projects over the shalini hepatis on initial image. Air or stone filling defect in the distal common bile duct on initial images, not seen on final images. Correlate with ERCP procedure note for real-time findings. at 0124 Reported and signed by: Pito Mark MD Electronically Signed: Pito Mark MD at 1:23 EDT Tel , Service support , Physical Exam Const oriented x3 and no apparent distress GI soft to palpation and non-tender Assessment & Plan Assessment/Plan (1) Acute cholecystitis: PLAN: Patient had ERCP yesterday and reports improvement in pain. Plan for laparoscopic cholecystectomy today. I discussed the procedure in detail with the patient. I discussed the risks, benefits, and alternatives of the procedure. I discussed the risks including but not limited to bleeding, infection, injury to surrounding organs such as the liver, bile duct, bowels. I did discuss the possibility of having to convert to an open procedure as well as the possibility that if any injuries occurred this may necessitate further surgery at a tertiary care center. Ronen Schuler MD Pager: [facility] [address] [place] [address], [address] [place] [address] Office:
[2021-02-26] MEDS: Lactated Ringers 1,000 ML 100 ML IV ×2 (08:00→09:35)
--- NOTE | 2021-02-26 08:00 | GALL_PTH ---
PATIENT: ZACARIAS GONZALEZ LOC: MS3 U#:[id number] AGE/SX: 45/F ROOM: [facility] [place]/24/[address]: Dr. Ronen Schuler MD : 1975 BED: 1 DIS: 02/26/2021 SPEC #: [id number] RECD: 02/27/21 09:27 STATUS: JUN CHRISTY #: [id number] IVAN: 02/26/21 08:[address]: Ronen Schuler DEPT: SURGICAL PATHOLOGY RECD BY: Yolanda Proctor ENTERED: 02/27/21 13:09 SP TYPE: MO LOPEZ DR: Dr. Roman Méndez MD Tissues: Gallbladder, NOS Procedures: Surgery Specimen Level III HEADER OPERATION: Laparoscopic cholecystectomy with IOC PRE-OP DIAGNOSIS: Choledocholithiasis; acute cholecystitis TISSUE SUBMITTED: Gallbladder MICROSCOPIC DIAGNOSIS Gallbladder, cholecystectomy: Chronic cholecystitis and cholelithiasis. AM:kale 02/28/2021 MICROSCOPIC DESCRIPTION Slides are reviewed. GROSS DESCRIPTION Received is one container labeled with the patient's name and designated gallbladder. The specimen consists of a gallbladder measuring 9 x 3 x 3 cm. The external surface is smooth and glistening. Focally, it is granular, hemorrhagic and contains cautery artifact. The lumen of the gallbladder contains yellow-green mucoid bile and multiple black calculi ranging in size from 0.1 to 0.3 cm in greatest dimension. The mucosa is bile-stained and without any mass lesions. The gallbladder wall averages 0.1 cm in thickness and is free of mass lesions. Application Support Analyst sections of the gallbladder and the cystic duct at margin of resection are submitted in one cassette. / AM:kale 02/27/21 TC:3 CPT: 83017
--- NOTE | 2021-02-26 08:00 | RAD_ITS ---
STUDY: REASON FOR EXAM: Female, 45 years old. LAP DAYANARA FLUOROSCOPY TIME (if supplied): ( 80 seconds ) minutes/seconds. A cine loop of 122 images was submitted. TECHNIQUE: Intraoperative client was performed by the surgeon. Imaging was submitted. COMPARISON: None. FINDINGS: The intrahepatic biliary ducts are unremarkable. There is mild dilatation of the common bile duct. No intraluminal filling defect is seen. There is free flow of contrast into the duodenum. RAD/Cholangiogram/ O R,Initial IMPRESSION: Mild dilatation of the common bile duct. No intraluminal filling defect is seen. Electronically Signed: Zohaib Solorzano MD at 8:05 EDT , Service support ,
--- NOTE | 2021-02-26 08:56 | OP.PCM_ITS ---
Problems Associated Problem List Diagnoses (1) Acute cholecystitis: Report of Operation Date of Procedure: 02/26/21 Pre-Operative Diagnosis: Acute cholecystitis Post-Operative Diagnosis: Acute cholecystitis with choledocholithiasis Surgery/Procedure Performed:: Laparoscopic cholecystectomy with cholangiogram Specimen's removed: Gallbladder and contents Description of Procedure: After obtaining informed consent patient was brought back to the operating room. General anesthesia was induced. The abdomen was prepped and draped in usual sterile fashion. A small midline incision was made superior to the umbilicus and deepened to the level of fascia. The fascia was elevated and incised. Next the peritoneum was elevated and incised in the same fashion. Finger sweep was performed and the Johnston trocar was placed into the abdomen. The balloon was inflated. The abdomen was inflated to 15 mmHg. Next a camera was introduced into the abdomen and the abdomen was inspected. Next under direct visualization three 5-mm ports were placed one subxiphoid and 2 subcostal. Next the gallbladder was elevated and retracted toward the right shoulder. The peritoneum was stripped from the gallbladder. The infundibulum was located and retracted laterally. Next the triangle of Calot was dissected and the cystic duct and cystic artery were identified. Cholangiograms were performed. The Ranfac catheter was placed through a focal incision in the right upper quadrant. A clip was placed on the proximal cystic duct. A small abiodun was made in the cystic duct and the Ranfac was placed into the cystic duct and a clip was placed over it. Under fluoroscopy contrast was instilled into the cystic duct, common duct duct as well as proximal hepatic ducts were identified. There was good filling of the duodenum. There was a filling defect noted in the common bile duct. Glucagon was given and this was flushed through. The clip was removed as well as the catheter and the infundibulum was grasped once more. Three hemolock clips were placed across the cystic duct. The cystic duct was then divided leaving 2 clips on the stump. The cystic artery was clipped and divided in the same fashion. The hook cautery was then used to take the gallbladder off of the gallbladder bed. Hemostasis was obtained. Gallbladder fossa was irrigated and no active bleeding or bile leakage was noted. Next the camera was introduced in the subxiphoid port. An Endopouch bag was placed through the umbilical port and the gallbladder was placed into it. The gallbladder was then removed through the umbilical incision. The camera was then reinserted through the umbilical port. The gallbladder fossa was inspected once more and noted to be hemostatic with no leaking bile. The abdomen was suctioned dry. The 5 mm ports were removed under direct visualization. The umbilical port was then removed and the air was removed from the abdomen. Next using an 0 Vicryl suture the umbilical fascia was closed in a [id number] fashion. The umbilical port site was irrigated local anesthetic was administered to all the incisions. All the incisions were closed with inte rrupted subcuticular 4-0 Monocryl sutures followed by Steri-Strips and dressings. The patient was awoken and taken to PACU in stable condition. Admit VTE Documentation VTE Mechan Device Prophylaxis: SCD's
--- NOTE | 2021-02-26 09:01 | PCM.DC.SUM ---
Providers Date of Admission: 02/24/21 Primary Care Physician: Dr. Yon Méndez MD Reason For Visit: ACUTE CHOLECYSTITIS WITH CHOLEDOCHOLITHIASIS Diagnosis Discharge Diagnosis (1) Acute cholecystitis: Status: Acute Code(s): K81.0 - Acute cholecystitis Medications at Discharge Home Medications omeprazole 40 mg PO DAILY #60 cap 02/26/21 oxycodone-acetaminophen [Percocet] 1 - 2 tab PO Q6H PRN 5 Days #20 tab 02/26/21 sucralfate 1 g PO 1HR_ACHS #40 tab 02/26/21 Hospital Course Operations cholecystecomy and ERCP Procedures None Summary of Care Provided Hospital Course: Patient was admitted with choledocholithiasis and acute cholecystitis and she was taken for ERCP the following day. Stone was removed and the following day after that she was taken for laparoscopic cholecystectomy. After that she was started on a diet and discharged home. Weight / BMI Weight Weight: 133 lb 2.547 oz Body Mass Index (BMI) 23.6 ABG / Lab / Microbiology Data Result Diagrams: 02/25/21 06:56 02/25/21 06:56 Microbiology: Microbiology 02/24/21 20:08 Nasal Secretion SARS-CoV-2 Antigen (Rapid) - Final Radiography Diagnostic Testing: Radiology Impression ERCP X-Ray 02/25/21 08:30 IMPRESSION: Fluoroscopic support for ERCP. Mild diffuse intra-and expect biliary dilatation. Nonspecific contrast density projects over the shalini hepatis on initial image. Air or stone filling defect in the distal common bile duct on initial images, not seen on final images. Correlate with ERCP procedure note for real-time findings. at 0124 Reported and signed by: Pito Mark MD Electronically Signed: Pito Mark MD at 1:23 EDT Tel , Service support , D/C Instructions Discharge Diet: Light diet - advance as tolerated Discharge Activity: May Not Drive (for 2-3 days or while taking narcotic pain medications.) and - (Do not drive, work heavy equipment or sign legal documents for 24 hours.) May shower in (days): 1 Lifting Restrictions: 20 lbs for 2 weeks Additional Activity Instructions: Pain medication may cause nausea. You should typically eat light foods as you take your pain medications. Pain medication may also cause constipation. If this is a problem for you, please discuss with your doctor. Call your doctor if your incision/area has: Continuous Slow Oozing, Sudden Increased Bleeding, Increased Pain/ Swelling, Increased Redness, Foul Smelling Discharge and Swelling at the incision site Call your doctor if you observe: Fever of 101 or Higher Suture Line Care: Avoid Pulling/Pushing and Avoid Pinching/Bending Remove Dressing in: 2 days Cleanse incision/area with: Soap & Water Additional Dressing/Incision Instructions: Leave operative bandaids on for 2 days. When you remove dressing, leave Steri-Strips on until your follow-up appointment, or until the Steri-Strips fall off on their own. Please Follow Up With: Ronen Schuler MD When: Please call to schedule 2 week follow up appointment. [phone] Meaningful Use Info Meaningful Use Diagnoses (Choose all that apply): None applicable Discharge Plan Admission Admit Date/Time: 02/24/21 20:03 Attending Provider: Ronen Schuler Primary Care Provider: Yon Méndez Discharge Orders/Prescriptions Prescriptions: New sucralfate 1 gram Tablet 1 g PO 1HR_ACHS Qty: 40 RF: 0 omeprazole 40 mg capsule,delayed release(DR/EC) 40 mg PO DAILY Qty: 60 RF: 0 oxycodone-acetaminophen [Percocet] 5-325 mg tablet 1 - 2 tab PO Q6H PRN (Reason: pain) 5 Days Qty: 20 RF: 0 Referrals / Follow Up: Yon Méndez MD [Primary Care Provider] - Disposition Disposition (needs filled in before D/C Order can be placed): Home, Self Care
--- NOTE | 2021-02-26 10:55 | SUR.PHASEI ---
SHU CHARGE NURSE WAS GIVEN VERBAL REPORT OVER THE PHONE. I ALSO CALLED HER BEFORE SHE WAS TRANSPORTED TO LET THEM KNOW I GAVE ANOTHER DOSE OF ZOFRAN. I REQUESTED THAT A POLYETHYLENE BAG MACHINE OPERATOR COME GET THE PATIENT BECAUSE WE ARE UNABLE TO TAKE THE PATIENT.
--- NOTE | 2021-02-26 12:45 | NURSING ---
pt awakens to name being spoken. rates pain 5/10, slight nausea. when pt not disturbed, closes eyes and rests. again offered po carafate or protonix, pt states she would like to wait a little bit longer. will continue to monitor.
[2021-02-26] MEDS: Ondansetron ODT 4 MG Tablet PO (12:53)
[2021-02-26] MEDS: 0.9% Saline Lock 10 ML Syringe IV (12:53)
[2021-02-26] MEDS: Morphine 2 MG/ML Syringe IV (12:53)
[2021-02-26] MEDS: Sucralfate 1 GM Tablet PO (14:42)
[2021-02-26] MEDS: Acetaminophen 325 MG Tablet 650 MG PO (15:58)
[2021-02-26] MEDS: Pantoprazole Sodium 40 MG Tablet PO (15:58)
== END 2021-02-26 18:04 | disposition home or self-care (01) | DRG 419 ==
LOC: ED 19:23 → MS3 20:20
PROVIDERS: Anesthesiology; Admitting Provider Surgery; Emergency Provider Emergency Medicine; PCP Family Medicine; Visit Provider Surgery
PROC: 0FC98ZZ Extirpation of Matter from Common Bile Duct, Via Natural or Artificial Opening Endoscopic (ICD-10-PCS; CPT 43260; principal; 2021-02-25 08:30)
PROC: 0FT44ZZ Resection of Gallbladder, Percutaneous Endoscopic Approach (ICD-10-PCS; CPT 47610; principal; 2021-02-26 08:00)
DX: K80.42 Calculus of bile duct with acute cholecystitis without obstruction (principal); E87.6 Hypokalemia
CPT/HCPCS: 74177; 74300; 74328; 76000; 80048; 80053; 80076; 81001; 81025; 83690; 84484; 85025; 85379; 87426; 88304; 93005; 99251; 99285; J7030; J7040; J7120; Q9967; A4216; C1769; G0463; J1610; J2405

== ENCOUNTER → 2022-01-02 | Outpatient (CLI) | payer OTHER, SELFPAY ==
[2022-01-02 10:32] LABS: Erythrocyte Sedimentation Rate 3 mm/hr (0-30)
[2022-01-02 10:34] LABS: Absolute Lymphocyte Count 1.31 X10^3/uL (0.83-4.51); Absolute Neutrophil Count 3.8 X10^3/uL (2.0-7.7); Basophil# 0.04 X10^3/uL; Basophil% 0.7 % (0-1); Eosinophil# 0.08 X10^3/uL; Eosinophils% 1.4 % (0-5); Hematocrit 40.7 % (37-47); Hemoglobin 13.8 g/dL (12.0-15.0); Lymphocyte # 1.31 X10^3/ul (0.83-4.51); Lymphocyte % 23.1 % (19-41); Mean Corp Hgb Conc 33.9 g/dL (32-36); Mean Corpuscular Hgb 30.9 pg (27.0-32.0); Mean Corpuscular Volume 91.3 fL (81-99); Mean Platelet Vol. 10.7 fl (6.2-12.0); Monocyte# 0.43 X10^3/uL; Monocyte% 7.6 % (0-10); NRBC Flagged by Analyzer 0 % (0-5); Neutrophil # 3.79 X10^3/uL (2.7-7.7); Neutrophil % 66.8 % (47-70); Platelet Count 311 K/mm3 (150-450); RBC Distribution Width CV 12.2 % (11.6-14.6); RBC Distribution Width SD 40.8 fl (35.1-43.9); Red Blood Count 4.46 M/mm3 (4.2-5.4); White Blood Count 5.7 K/mm3 (4.4-11.0)
[2022-01-02 11:05] LABS: ALB/GLOB Ratio 1.2 RATIO (0.9-2.4); AST(SGOT) 8 U/L (15-37); Alanine Aminotransfer ALT/SGPT 16 U/L (13-56); Albumin, Serum 4.1 g/dL (3.2-5.0); Alkaline Phosphatase 55 U/L (45-117); Anion Gap 6 (5-15); BUN 9 mg/dL (7-18); BUN/Creat Ratio 10.5 RATIO (10-20); Calcium,Total 8.9 mg/dL (8.5-10.1); Chloride 106 mmol/L (98-107); Creatinine, Serum 0.86 mg/dL (0.55-1.02); EST Glomerular Filtration Rate 76 mL/min (>60); Est Glom Filt Rate - Afr Amer 92 mL/min (>60); Globulin 3.3 g/dL (2.2-4.2); Glucose 95 mg/dL (74-106); Potassium 3.5 mmol/L (3.5-5.1); Prealbumin 24.4 mg/dL (20.0-40.0); Protein, Total 7.4 g/dL (6.4-8.2); Sodium Level 141 mmol/L (136-145); Thyroid Stim Hormone (TSH) 0.73 uIU/mL (0.358-3.74)
[2022-01-04 15:07] LABS: Endomysial Antibody IgA Negative (Negative)
[2022-01-05 18:10] LABS: Immunoglobulin A 187 mg/dL (87-352); t-Transglutaminase IgA <2 U/mL (0-3)
[2022-01-08 01:06] LABS: Alternaria alternata <0.10 kU/L (Class 0); Bermuda Grass 0.61 kU/L (Class II); D farinae Mite 8.34 kU/L (Class IV); D pteronyssinus 9.57 kU/L (Class IV); Dog Epithelia 1.52 kU/L (Class III); Elm, American White <0.10 kU/L (Class 0); Oak, White <0.10 kU/L (Class 0); Ragweed, Short/Common <0.10 kU/L (Class 0)
[2022-01-10 16:51] LABS: Mouse Urine <0.10 kU/L (Class 0)
== END | disposition home or self-care (01) ==
LOC: MFPLAB 08:37
PROVIDERS: PCP Family Medicine; Visit Provider Family Medicine
DX: R19.7 Diarrhea, unspecified (principal); R63.4 Abnormal weight loss
CPT/HCPCS: 36415; 80053; 82784; 83516; 84134; 84443; 85025; 85652; 86003; 86255

== ENCOUNTER → 2022-01-10 | Outpatient (CLI) | payer OTHER, SELFPAY ==
[2022-01-11 17:22] LABS: Fats, Neutral Normal (.); Fats, Total Normal (.)
[2022-01-17 08:37] LABS: Pancreatic Elastase, Fecal 141 (>200)
== END | disposition home or self-care (01) ==
LOC: LAB 08:11 → LABSPEC 08:13
PROVIDERS: PCP Family Medicine; Referring Provider Family Medicine; Visit Provider Family Medicine
DX: R19.7 Diarrhea, unspecified (principal); R63.4 Abnormal weight loss
CPT/HCPCS: 82274; 82653; 82705; 83630; 87177; 87209; 87493; 87506

== ENCOUNTER → 2022-05-10 | Outpatient (CLI) | payer OTHER, SELFPAY ==
[2022-05-10 15:54] LABS: Erythrocyte Sedimentation Rate 3 mm/hr (0-30)
[2022-05-10 16:16] LABS: CRP < 2.90 mg/L (0.0-3.0)
[2022-05-15 14:08] LABS: Anti-Centromere B Ab <0.2 AI (0.0-0.9); Anti-Chromatin <0.2 AI (0.0-0.9); Anti-Jo <0.2 AI (0.0-0.9); Anti-Scleroderma-70 AB <0.2 AI (0.0-0.9); RNP Ab <0.2 AI (0.0-0.9); SJOGREN'S Anti-SS-A test < 0.2 AI (0.0-0.9); SJOGREN'S Anti-SS-B test < 0.2 AI (0.0-0.9); Smith Ab <0.2 AI (0.0-0.9)
[2022-05-15 16:30] LABS: Anti-dsDNA Ab 2 IU/mL (0-9)
[2022-05-16 09:08] LABS: Cytoplasmic Ab (C-ANCA) <1:20 titer (Neg:<1:20); Immunoglobulin A 194 mg/dL (87-352); Immunoglobulin E 135 IU/mL (6-495); Immunoglobulin G 1005 mg/dL (586-1602)
[2022-05-16 19:23] LABS: Anti-Parietal Cell AB, QN 2.9 Units (0.0-20.0); Gastrin, Serum 13 pg/mL (0-115); Immunoglobulin M 85 mg/dL (26-217); Perinuclear Ab (P-ANCA) <1:20 titer (Neg:<1:20)
== END | disposition home or self-care (01) ==
LOC: LAB 15:15
PROVIDERS: PCP Family Medicine; Referring Provider Internal Medicine Gastroenterology; Visit Provider Internal Medicine Gastroenterology
DX: K86.81 Exocrine pancreatic insufficiency (principal); Z22.1 Carrier of other intestinal infectious diseases
CPT/HCPCS: 36415; 82784; 82785; 82941; 83516; 85652; 86140; 86225; 86235; 86256; 86340

== ENCOUNTER → 2022-05-11 | Outpatient (CLI) | payer OTHER, SELFPAY ==
[2022-05-18 18:17] LABS: Pancreatic Elastase, Fecal 378 (>200)
== END | disposition home or self-care (01) ==
PROVIDERS: PCP Family Medicine; Referring Provider Internal Medicine Gastroenterology; Visit Provider Internal Medicine Gastroenterology
DX: K86.81 Exocrine pancreatic insufficiency (principal); Z22.1 Carrier of other intestinal infectious diseases
CPT/HCPCS: 82653

== ENCOUNTER 2022-05-17 08:12 | Day surgery (SDC) | payer OTHER, SELFPAY ==
[2022-05-17] VITALS (8 sets, daily range): BP systolic 75–111; BP diastolic 46–70; PULSE 65–82; RESP 16–18; TEMP 36.2–36.7; O2SAT 95–100; BMI 21.2
[2022-05-17 08:45] LABS: Internal QC Validated? YES +Cl - CLEAR BKGD; Pregnancy, Urine Negative Negative
[2022-05-17] MEDS: Lactated Ringers 1,000 ML 15 ML IV (08:51)
--- NOTE | 2022-05-17 09:09 | PCM.HP.BLA ---
History and Physical Date of Admission: 05/17/22 46 F who presents to the office today for Initial consult. Amy established with this clinic 05.01.22 with referral from PCP for chronic GI issues. Since cholecystectomy she has been having watery diarrhea postprandial. Performed a ?gut health challenge? through [facility] and eliminated diary, soy, corn and started digestive enzymes summer. She stopped shakes, diet elimination and enzymes. PCP tested fecal elastase (L141) and resumed digestive enzymes. With use of these she is having positive results. With menstrual cycle she will get upset stomach and loose stool, this has been her normal for a very long time Dysphagia and heartburn for many years esophageal spasm noted in chart. This has also resolved with use of enzymes. Stool testing fats, lactoferrin, EP, occult, O/P Elastase L141; C.Difficile positive toxin, negative A/B antigen CT abd/pel 02.24.21 noting gallbladder intraluminal stones with wall thickening, pericholecystic fat stranding. Remaining exam without acute/chronic abnormality. Sucralfate x2 weeks ERCP 02.25.21 noting choledocholithiasis; biliary sphincterotomy and balloon extraction. Cholecystectomy 02.25.21 ROS Const Constitutional: No other (6 system ROS completed with pertinent findings in the HPI otherwise normal.) Exam Const General: cooperative and healthy appearing [facility] Head: normocephalic and atraumatic Ears: hearing grossly normal bilaterally Nose: external nose normal Face and sinus: normal facial exam and face symmetric Eyes Conjunctivae: conjunctivae normal Sclera: sclerae normal Cornea: corneas normal Pupils: PERRL EOM: EOM intact bilaterally Resp Effort & Inspection: normal respiratory effort Cardio Rate: regular rate Skin General: no rashes or lesions noted Neuro General: patient alert Psych Appearance: grossly normal Mental Status: mental status grossly normal Quality Reporting Tobacco Screening ([facility]) Smoking Status: Never smoker Assessment and Plan Assessment and Plan (1) Exocrine pancreatic insufficiency: ?Status:?Chronic ?Plan: She had a low fecal elastase.? I am not sure she has is secondary to the conjugation from bile, small bacterial overgrowth or from true pancreatic exocrine insufficiency.? She is on pancreatic digestive enzymes that she has been taking with each meal.? This has been helping her diarrhea.? I feel we should recheck her fecal elastase and see if her enzymatic activity in her small bowel is improving. 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 difficile because she is positive? via PCR.? She is not producing the antigen and does not have a or B antibody.? Therefore she is just a carrier.? She is on probiotics which is likely keeping it at bay..? If she does need antibiotics in the future she will have to increase her consumption of probiotics. (3) Gastritis: ?Status:?Acute ?Plan: ?The differential diagnosis for her gastritis would be bile gastritis, H. pylori associated gastritis, autoimmune gastritis, stress-induced gastritis secondary to acute choledocholithiasis and acute cholecystitis. She should undergo an egd to evaluate her upper GI tract. We should also check Gastric level, intrinsic factor and antiparietal call antibody. ? ? ? Orders: Orders CRP Today K86.81 - Exocrine pancreatic insufficiency, Z22.1 - Carrier of other intestinal infectious diseases ? Erythrocyte Sed Rate Today K86.81 - Exocrine pancreatic insufficiency, Z22.1 - Carrier of other intestinal infectious diseases ? ANCA Today K86.81 - Exocrine pancreatic insufficiency, Z22.1 - Carrier of other intestinal infectious diseases ? Immunoglobulin A Today K86.81 - Exocrine pancreatic insufficiency, Z22.1 - Carrier of other intestinal infectious diseases ? Immunoglobulin E Today K86.81 - Exocrine pancreatic insufficiency, Z22.1 - Carrier of other intestinal infectious diseases ? Immunoglobulin G Today K86.81 - Exocrine pancreatic insufficiency, Z22.1 - Carrier of other intestinal infectious diseases ? Immunoglobulin M Today K86.81 - Exocrine pancreatic insufficiency, Z22.1 - Carrier of other intestinal infectious diseases ? SHERIN Comprehensive Panel Today K86.81 - Exocrine pancreatic insufficiency, Z22.1 - Carrier of other intestinal infectious diseases ? Pancreatic Elastase, Fecal Today K86.81 - Exocrine pancreatic insufficiency, Z22.1 - Carrier of other intestinal infectious diseases ? Gastrin, Serum Today K86.81 - Exocrine pancreatic insufficiency, Z22.1 - Carrier of other intestinal infectious diseases ? Intrinsic Factor Ab Today K86.81 - Exocrine pancreatic insufficiency, Z22.1 - Carrier of other intestinal infectious diseases ? Anti-Parietal Cell AB, QN Today K86.81 - Exocrine pancreatic insufficiency, Z22.1 - Carrier of other intestinal infectious diseases ? I have examined the patient and the H&P has been reviewed. There are no clinical changes since date of exam.
--- NOTE | 2022-05-17 09:30 | IMM_PTH ---
PATIENT: ZACARIAS GONZALEZ LOC: EN U#:[id number] AGE/SX: 46/F ROOM: RE05/17/[address]: Dr. Jesús Belcher DO : 1975 BED: DIS: 05/17/2022 SPEC #: [id number] RECD: 05/17/22 14:51 STATUS: JUN REQ #: [id number] IVAN: 05/17/22 09:[address]: Jesús Belcher DEPT: IMMUNOHISTOCHEMISTRY RECD BY: Monisha Bowman ENTERED: 05/17/22 14:51 SP TYPE: IMMUNO OTHR DR: Dr. Roman Méndez MD Tissues: B - Stomach, NOS Procedures: H Pylori (initial) PHYSICIAN & INSTITUTION [place] [address] SPECIMEN INFORMATION: Tissue Source: B ? Antrum biopsy Clinical Info: Exocrine pancreatic insufficiency, C-diff carrier, gastritis Specimen Number: [id number] CPT code: 87179 METHODOLOGY: Deparaffinized sections of prefer/formalin-fixed tissue or PAP/DQ stained slides are incubated with monoclonal/polyclonal antibodies/oligonucleotide probes. Localization is made via biotin free immunoperoxidase method. Appropriate controls are performed and reacted as expected. Results on target cell population are indicated in the following table: RESULTS: ANTIBODY / CLONE RESULT Block B H Pylori (polyclonal) negative These tests were developed and their performance characteristics determined by [facility]. They may not have been cleared or approved by the U.S. Food and Drug Administration. The FDA has determined that such clearance or approval is not necessary. The above immunohistochemical/dualISH markers are ordered and reviewed by the Pathologist. INTERPRETATION: B. Antrum, biopsy: Negative for Helicobacter pylori organisms. SJ:kale 05/18/2022
--- NOTE | 2022-05-17 09:30 | EGD_PTH ---
PATIENT: ZACARIAS GONZALEZ LOC: EN U#:[id number] AGE/SX: 46/F ROOM: RE05/17/[address]: Dr. Jesús Belcher DO : 1975 BED: DIS: 05/17/2022 SPEC #: [id number] RECD: 05/17/22 10:28 STATUS: JUN JAELYN #: [id number] IVAN: 05/17/22 09:[address]: Jesús Belcher DEPT: SURGICAL PATHOLOGY RECD BY: Yolanda Proctor ENTERED: 05/17/22 12:24 SP TYPE: EGD BIOPSY JESSICA DR: Dr. Roman Méndez MD Tissues: A - Duodenum, NOS B - Gastric mucous membrane C - Esophagus, NOS Procedures: Special Stain Group II Surgery Specimen Level IV Alcian Blue/PAS (control) HEADER OPERATION: [place] with biopsies PRE-OP DIAGNOSIS: Exocrine pancreatic insufficiency, C-diff carrier, gastritis TISSUE SUBMITTED: A ? Duodenum biopsy, B ? Antrum biopsy for H. pylori and path, C ? Distal esophagus biopsy MICROSCOPIC DIAGNOSIS A. Duodenum, biopsy: Fragments of duodenal mucosa, no pathologic diagnosis. B. Antrum, biopsy: Mild gastritis. See microscopic description and comment. C. Distal esophagus, biopsy: Fragments of gastroesophageal mucosa with chronic inflammation. Intestinal metaplasia (goblet cell metaplasia) not identified. See comment. SJ:kale 05/18/2022 COMMENT B. The results of immunohistochemistry for Helicobacter pylori will be reported separately ([id number]). C. Alcian blue/PAS stain with matched control is used in the evaluation of the specimen. MICROSCOPIC DESCRIPTION Slides are reviewed. B. The specimen shows fragments of gastric mucosa with chronic inflammatory cell infiltrates in the lamina propria consisting of lymphocytes and plasma cells, consistent with mild chronic gastritis. GROSS DESCRIPTION A - Received in fixative is one container labeled with the patient's name and designated duodenum biopsy. The specimen consists of multiple irregular fragments of light umanzor soft tissue that in aggregate measure 1 x 0.8 x 0.1 cm. The specimen is totally submitted in one cassette. B - Received in fixative is one container labeled with the patient's name and designated antrum biopsy. The specimen consists of one irregular fragment of light umanzor soft tissue that measures 0.5 x 0.3 x 0.1 cm. The specimen is totally submitted in one cassette. C - Received in fixative is one container labeled with the patient's name and designated distal esophagus biopsy. The specimen consists of two irregular fragments of light umanzor soft tissue that in aggregate measure 0.7 x 0.6 x 0.1 cm. The specimen is totally submitted in one cassette. / AM:kale 05/17/2022 TC:3 CPT: 69471 x3, 68982
--- NOTE | 2022-05-17 09:32 | OP.EGD_ITS ---
Patient Name: Amy Mendenhall Procedure Date: 05/17/2022 9:08 AM Date of : 1975 Age: 46 Procedure: Upper GI endoscopy Indications: Epigastric abdominal pain, Functional Dyspepsia, Failure to respond to medical treatment Providers: Jesús Belcher DO Referring MD: Yon Méndez Medicines: Monitored Anesthesia Care Patient Profile: This is a 46 year old female. Refer to note in patient chart for documentation of history and physical. Patient has symptoms of acute epigastric abdominal pain and chronic dyspepsia. Complications: No immediate complications. Procedure: Pre-Anesthesia Assessment: - Prior to the procedure, a History and Physical was performed, and patient medications and allergies were reviewed. The risks and benefits of the procedure and the sedation options and risks were discussed with the patient. All questions were answered and informed consent was obtained. Patient identification and proposed procedure were verified by the physician in the pre-procedure area. Mental Status Examination: alert and oriented. Airway Examination: normal oropharyngeal airway and neck mobility. Respiratory Examination: clear to auscultation. CV Examination: normal. Prophylactic Antibiotics: The patient does not require prophylactic antibiotics. Prior Anticoagulants: The patient has taken no previous anticoagulant or antiplatelet agents. ASA Grade Assessment: II - A patient with mild systemic disease. After reviewing the risks and benefits, the patient was deemed in satisfactory condition to undergo the procedure. The anesthesia plan was to use monitored anesthesia care (MAC). Immediately prior to administration of medications, the patient was re-assessed for adequacy to receive sedatives. The heart rate, respiratory rate, oxygen saturations, blood pressure, adequacy of pulmonary ventilation, and response to care were monitored throughout the procedure. The physical status of the patient was re-assessed after the procedure. After obtaining informed consent, the endoscope was passed under direct vision. Throughout the procedure, the patient's blood pressure, pulse, and oxygen saturations were monitored continuously. The gastroscope was introduced through the mouth, and advanced to the second part of duodenum. The upper GI endoscopy was accomplished without difficulty. The patient tolerated the procedure well. Scope In: 9:19:13 AM Scope Out: 9:24:54 AM Total Procedure Duration Time 0 hours 5 minutes 41 seconds Findings: LA Grade A (one or more mucosal breaks less than 5 mm, not extending between tops of 2 mucosal folds) esophagitis with no bleeding was found 36 to 37 cm from the incisors. Biopsies were taken with a cold forceps for histology. Verification of patient identification for the specimen was done. Estimated blood loss was minimal. Patchy mildly erythematous mucosa without bleeding was found in the gastric antrum. Biopsies were taken with a cold forceps for histology. Verification of patient identification for the specimen was done. Estimated blood loss was minimal. No gross lesions were noted in the duodenal bulb, in the first portion of the duodenum and in the second portion of the duodenum. Biopsies were taken with a cold forceps for histology. Verification of patient identification for the specimen was done. Estimated blood loss was minimal. A benign-appearing, intrinsic moderate stenosis was found at the pylorus. This was traversed. Impression: - LA Grade A reflux esophagitis. Biopsied. - Erythematous mucosa in the antrum. Biopsied. - No gross lesions in the duodenal bulb, in the first portion of the duodenum and in the second portion of the duodenum. Biopsied. Recommendation: - Discharge patient to home. - Resume previous diet. - Continue present medications. - Await pathology results. Procedure Code(s): --- Professional --- 79825, Esophagogastroduodenoscopy, flexible, transoral; with biopsy, single or multiple CPT copyright 2017 [employer]. All rights reserved. The codes documented in this report are preliminary and upon supervisor telephone information review may be revised to meet current compliance requirements. Jesús Belcher DO 05/17/2022 9:32:06 AM This report has been signed electronically. Number of Addenda: 0 Note Initiated On: 05/17/2022 9:08 AM
--- NOTE | 2022-05-17 09:33 | OP.CCLET_ITS ---
05/17/2022 Yon Méndez [address] [place] [address] Re : Upper GI endoscopy procedure for Amy Mendenhall Dear Dr. Méndez This procedure was performed on May. My impressions and recommendations are as follows: Impressions : - LA Grade A reflux esophagitis. Biopsied. - Erythematous mucosa in the antrum. Biopsied. - No gross lesions in the duodenal bulb, in the first portion of the duodenum and in the second portion of the duodenum. Biopsied. Recommendations : - Discharge patient to home. - Resume previous diet. - Continue present medications. - Await pathology results. My findings are described in the full procedure note, which is enclosed. If I can be of further assistance, please feel free to contact me at . Sincerely, Jesús Belcher, 05/17/2022 9:32:06 AM This report has been signed electronically.
== END 2022-05-17 11:02 | disposition home or self-care (01) ==
LOC: EN 08:12 → AC 08:13
PROVIDERS: Anesthesiology; PCP Family Medicine; Referring Provider Family Medicine; Visit Provider Internal Medicine Gastroenterology
PROC: 0DJ08ZZ Inspection of Upper Intestinal Tract, Via Natural or Artificial Opening Endoscopic (ICD-10-PCS; CPT 43235; principal; 2022-05-17 09:25)
DX: K29.70 Gastritis, unspecified, without bleeding (principal); K86.89 Other specified diseases of pancreas; K21.00 Gastro-esophageal reflux disease with esophagitis, without bleeding; R19.7 Diarrhea, unspecified; Z22.39 Carrier of other specified bacterial diseases; Z90.49 Acquired absence of other specified parts of digestive tract
CPT/HCPCS: 43239; 81025; 88305; 88313; 88342; J7120; J2405

== ENCOUNTER → 2024-01-08 | Outpatient (CLI) | payer OTHER, SELFPAY ==
--- NOTE | 2024-01-08 15:00 | BI_ITS ---
MAMMOGRAPHY - BILATERAL SCREENING REASON FOR EXAM: Female, 48 years old. Routine annual screening examination. PERTINENT HISTORY: Non-contributory. TECHNIQUE: Digital bilateral breast katelyn (3D mammographic acquisition) in the CC and MLO projections. 2-D mediolateral oblique (MLO) and craniocaudad (CC) views of both breasts were obtained. CAD: Full Field Digital Mammography with Computer Added Detection was performed. COMPARISON: Comparison is made with prior study dated December 31, 2012. FINDINGS: Breast Composition: The breasts are extremely dense, which lowers the sensitivity of mammography. There are no dominant masses or suspicious calcifications. No other significant abnormalities are identified. There has been no significant change since the prior study. BI/SCRN MAMM (CAD)W/KATELYN BILAT IMPRESSION: Stable bilateral screening mammogram. Yearly follow-up mammogram recommended. (A) ASSESSMENT CATEGORY: BIRADS Category 1: Negative. A letter regarding these results will be sent to the patient by the facility within 30 days. Approximately 10% of breast cancers are not detected by mammography. A normal mammogram should not delay biopsy of a clinically suspicious abnormality. [id number] Electronically Signed: Zohaib Solorzano MD at 9:02 EDT ,
== END | disposition home or self-care (01) ==
LOC: OPBI 14:58
PROVIDERS: PCP Family Medicine; Referring Provider Obstetrics & Gynecology; Visit Provider Obstetrics & Gynecology
DX: Z12.31 Encounter for screening mammogram for malignant neoplasm of breast (principal)
CPT/HCPCS: 77063; 77067